=== PATIENT | male | born 1940 | race Caucasian/White ===

== ENCOUNTER 2023-11-06 07:43 | Inpatient (IN) ==
[2023-11-04 14:26] LABS: Basophils # (Auto) 0.04 K/mcL (0.00-0.30); Basophils % (Auto) 0.5 % (0.0-2.0); Eosinophils # (Auto) 0.07 K/mcL (0.00-0.70); Eosinophils % (Auto) 0.8 % (0.0-7.0); Hemoglobin 12.6 g/dL (13.7-17.5); Lymphocytes # (Auto) 1.53 K/mcL (1.50-4.80); Lymphocytes % (Auto) 18.2 % (15.5-49.0); Mean Cell Volume 99.5 fL (80.0-100.0); Mean Corpuscular HGB Conc 32.3 g/dL (31.0-36.0); Mean Platelet Volume 10.3 fL (8.8-12.5); Monocytes # (Auto) 0.63 K/mcL (0.10-0.90); Monocytes % (Auto) 7.5 % (1.0-12.0); Neutrophils % (Auto) 72.8 % (38.0-78.0); Platelet Count 168 K/mcL (140-440); RBC 3.92 M/mcL (4.63-6.08); Red Cell Distribution Width 13.9 % (11.5-14.5); WBC 8.4 K/mcL (4.5-11.0)
[2023-11-04 14:47] LABS: Blood Urea Nitrogen 19 mg/dL (8-23); Calcium 9.1 mg/dL (8.6-10.4); Carbon Dioxide 24 mmol/L (22-30); Chloride 101 mmol/L (96-108); Glomerular Filtration Rate 46; Glucose 94 mg/dL (70-105); Potassium 4.3 mmol/L (3.3-5.1); Sodium 136 mmol/L (133-145)
[2023-11-06] MEDS ORDERED: fentaNYL 100 MCG/2 ML VIAL ONE ×2 (09:21→12:27)
[2023-11-06] MEDS ORDERED: KETAMINE 50 MG/ML Syringe IV ONE (09:21)
[2023-11-06] MEDS ORDERED: PROPOFOL 200 MG/20 ML VIAL IV ONE (09:21)
[2023-11-06] MEDS ORDERED: DEXAMETHASONE 10 MG/ML VIAL ONE (09:22)
[2023-11-06] MEDS ORDERED: ONDANSETRON 4 MG/2 ML VIAL ONE (09:22)
[2023-11-06] MEDS ORDERED: MAGNESIUM SULFATE 2 GM/50 ML BAG IV ONE (09:22)
[2023-11-06] MEDS ORDERED: LIDOCAINE 2% PF 5 ML VIAL ONE (09:22)
[2023-11-06] MEDS ORDERED: ROCURONIUM 10 MG/ML ML IV ONE ×3 (09:22→12:33)
[2023-11-06] MEDS: PIPERACILLIN SODIUM/TAZOBACTAM 3.375 GM in DEXTROSE 5% IN WATER 50 ML IV SCH (09:53)
[2023-11-06] MEDS ORDERED: SUGAMMADEX SODIUM 200 MG/2 ML VIAL IV ONE (14:10)
[2023-11-06] MEDS ORDERED: ROPIVACAINE HCL/PF 30 ML VIAL IJ ONE (14:10)
[2023-11-06] MEDS ORDERED: NALOXONE HCL 0.4 MG/ML VIAL IV PRN (14:25)
[2023-11-06] MEDS ORDERED: ONDANSETRON 4 MG/2 ML VIAL IV PRN (14:25)
[2023-11-06] MEDS ORDERED: diphenhydrAMINE 50 MG/ML VIAL IV PRN (14:25)
[2023-11-06] MEDS ORDERED: LACTATED RINGERS 250 ML IV PRN (14:25)
[2023-11-06] MEDS: GUM MASTIC/STORAX/MSAL/ALCOHOL 1 DOSE DROPERETTE TOPICAL ONE (14:32)
[2023-11-06] MEDS: ACETAMINOPHEN 1,000 MG/100 ML BAG IV ONE (15:09)
[2023-11-06] MEDS: IPRATROPIUM/ALBUTEROL 3 ML AMPUL.NEB NEB PRN (15:18)
[2023-11-06] MEDS: fentaNYL 100 MCG/2 ML VIAL IV PRN (15:18)
[2023-11-06] MEDS ORDERED: HYDROmorphone PCA 30 MG/30 ML PCA.VIAL IV PRN (15:21)
[2023-11-06] MEDS: MEPERIDINE 25 MG/ML VIAL IV PRN (15:22)
[2023-11-06] MEDS: DEXTROSE 5%-LR 1,000 ML IV SCH (15:56)
[2023-11-06] MEDS: METHOCARBAMOL 1,000 MG/10 ML VIAL IV PRN (16:05)
[2023-11-06] MEDS ORDERED: ALBUTEROL SULFATE 60 PUFF INHALER INH PRN (16:09)
[2023-11-06] MEDS: PIPERACILLIN SODIUM/TAZOBACTAM 3.375 GM in DEXTROSE 5% IN WATER 100 ML IV SCH (16:16)
[2023-11-06] MEDS: 0.9 % SODIUM CHLORIDE 250 ML IV SCH (16:21)
[2023-11-06] MEDS: PANTOPRAZOLE 40 MG VIAL IV SCH (16:55)
[2023-11-06] MEDS: HYDROmorphone 1 MG/ML SYRINGE IV PRN (16:55)
[2023-11-06] MEDS: TERBINAFINE CRM 1% TUBE 15GM TOPICAL SCH (20:11)
[2023-11-06] MEDS: SODIUM CHLORIDE NASAL 1 SPRAY BOTTLE NAS SCH (20:13)
[2023-11-07 06:48] LABS: Basophils # (Auto) 0.02 K/mcL (0.00-0.30); Basophils % (Auto) 0.2 % (0.0-2.0); Eosinophils # (Auto) 0 K/mcL (0.00-0.70); Eosinophils % (Auto) 0 % (0.0-7.0); Hematocrit 36.8 % (40.1-51.0); Hemoglobin 11.9 g/dL (13.7-17.5); Lymphocytes # (Auto) 0.64 K/mcL (1.50-4.80); Mean Cell Volume 99.7 fL (80.0-100.0); Mean Corpuscular HGB Conc 32.3 g/dL (31.0-36.0); Monocytes # (Auto) 0.89 K/mcL (0.10-0.90); Monocytes % (Auto) 8.3 % (1.0-12.0); Neutrophils % (Auto) 85.2 % (38.0-78.0); Platelet Count 143 K/mcL (140-440); RBC 3.69 M/mcL (4.63-6.08); Red Cell Distribution Width 13.7 % (11.5-14.5); WBC 10.7 K/mcL (4.5-11.0)
[2023-11-07 07:09] LABS: ALT/SGPT 7 U/L (<40); AST/SGOT 22 U/L (<40); Albumin 3.6 gm/dL (3.2-5.2); Albumin/Globulin Ratio 1.6 (1.0-2.3); Alkaline Phosphatase 74 U/L (39-117); Bilirubin,Total 0.5 mg/dL (0.1-1.0); Blood Urea Nitrogen 18 mg/dL (8-23); Calcium 8.3 mg/dL (8.6-10.4); Carbon Dioxide 25 mmol/L (22-30); Chloride 102 mmol/L (96-108); Globulin 2.2 gm/dL (2.2-3.7); Glomerular Filtration Rate 43; Glucose 172 mg/dL (70-105); Potassium 4.1 mmol/L (3.3-5.1); Sodium 138 mmol/L (133-145)
[2023-11-07] MEDS: ACETAMINOPHEN 650 MG/65 ML BAG IV PRN (07:17)
[2023-11-07] MEDS: IPRATROPIUM/ALBUTEROL 3 ML AMPUL.NEB NEB PRN (10:33)
[2023-11-07] MEDS: ALBUTEROL SULFATE 2.5 MG/3 ML NEBULIZER NEB PRN (12:59)
[2023-11-08 06:59] LABS: Hematocrit 36.5 % (40.1-51.0); Hemoglobin 11.6 g/dL (13.7-17.5); Mean Cell Volume 100.6 fL (80.0-100.0); Mean Corpuscular HGB Conc 31.8 g/dL (31.0-36.0); Platelet Count 140 K/mcL (140-440); RBC 3.63 M/mcL (4.63-6.08); WBC 8.7 K/mcL (4.5-11.0)
[2023-11-08 07:37] LABS: Blood Urea Nitrogen 15 mg/dL (8-23); Calcium 8.3 mg/dL (8.6-10.4); Carbon Dioxide 27 mmol/L (22-30); Chloride 102 mmol/L (96-108); Glomerular Filtration Rate 39; Glucose 103 mg/dL (70-105); Potassium 3.6 mmol/L (3.3-5.1); Sodium 139 mmol/L (133-145)
[2023-11-08] MEDS: ONDANSETRON 4 MG/2 ML VIAL IV PRN (11:39)
[2023-11-08] MEDS: BENZOCAINE/MENTHOL 1 LOZENGE PO PRN (16:04)
[2023-11-09 06:57] LABS: Hematocrit 36.9 % (40.1-51.0); Hemoglobin 11.7 g/dL (13.7-17.5); Mean Cell Volume 100.5 fL (80.0-100.0); Mean Corpuscular HGB Conc 31.7 g/dL (31.0-36.0); Mean Platelet Volume 10.8 fL (8.8-12.5); Platelet Count 126 K/mcL (140-440); RBC 3.67 M/mcL (4.63-6.08); Red Cell Distribution Width 13.8 % (11.5-14.5); WBC 8.2 K/mcL (4.5-11.0)
[2023-11-09 07:22] LABS: Blood Urea Nitrogen 11 mg/dL (8-23); Calcium 8.1 mg/dL (8.6-10.4); Carbon Dioxide 29 mmol/L (22-30); Chloride 103 mmol/L (96-108); Glomerular Filtration Rate 43; Glucose 98 mg/dL (70-105); Potassium 3.9 mmol/L (3.3-5.1); Sodium 138 mmol/L (133-145)
[2023-11-09] MEDS: LACTATED RINGERS 1,000 ML IV SCH (12:39)
[2023-11-10 06:53] LABS: Hematocrit 37.9 % (40.1-51.0); Hemoglobin 12.2 g/dL (13.7-17.5); Mean Cell Volume 98.7 fL (80.0-100.0); Mean Corpuscular HGB Conc 32.2 g/dL (31.0-36.0); Mean Platelet Volume 10.5 fL (8.8-12.5); Platelet Count 134 K/mcL (140-440); RBC 3.84 M/mcL (4.63-6.08); Red Cell Distribution Width 13.6 % (11.5-14.5); WBC 7.7 K/mcL (4.5-11.0)
[2023-11-10 07:22] LABS: Blood Urea Nitrogen 8 mg/dL (8-23); Calcium 8.3 mg/dL (8.6-10.4); Carbon Dioxide 25 mmol/L (22-30); Chloride 102 mmol/L (96-108); Glomerular Filtration Rate 51; Glucose 108 mg/dL (70-105); Potassium 3.3 mmol/L (3.3-5.1); Sodium 137 mmol/L (133-145)
[2023-11-10] MEDS: FUROSEMIDE 40 MG TABLET PO SCH (08:14)
[2023-11-10] MEDS: LEVOTHYROXINE 50 MCG TABLET PO SCH (08:14)
[2023-11-10] MEDS: LEVOTHYROXINE 100 MCG VIAL IV SCH (11:28)
[2023-11-10] MEDS: FUROSEMIDE 20 MG/2 ML VIAL IV SCH (11:30)
[2023-11-10] MEDS ORDERED: MONTELUKAST 10 MG TABLET PO SCH (21:00)
[2023-11-10] MEDS ORDERED: GABAPENTIN 300 MG CAPSULE PO SCH (21:00)
[2023-11-10] MEDS: HEPARIN 5,000 UNIT/ML VIAL SQ SCH (22:55)
[2023-11-11 08:40] LABS: Basophils # (Auto) 0.06 K/mcL (0.00-0.30); Basophils % (Auto) 0.8 % (0.0-2.0); Eosinophils # (Auto) 0.19 K/mcL (0.00-0.70); Eosinophils % (Auto) 2.6 % (0.0-7.0); Hematocrit 39.2 % (40.1-51.0); Hemoglobin 12.7 g/dL (13.7-17.5); Lymphocytes # (Auto) 1.15 K/mcL (1.50-4.80); Mean Cell Volume 96.1 fL (80.0-100.0); Mean Corpuscular HGB Conc 32.4 g/dL (31.0-36.0); Mean Platelet Volume 10.6 fL (8.8-12.5); Monocytes # (Auto) 0.73 K/mcL (0.10-0.90); Monocytes % (Auto) 10.2 % (1.0-12.0); Neutrophils % (Auto) 70.1 % (38.0-78.0); Platelet Count 158 K/mcL (140-440); RBC 4.08 M/mcL (4.63-6.08); Red Cell Distribution Width 13.4 % (11.5-14.5); WBC 7.2 K/mcL (4.5-11.0)
[2023-11-11 08:54] LABS: ALT/SGPT < 5 U/L (<40); AST/SGOT 22 U/L (<40); Albumin 3.6 gm/dL (3.2-5.2); Albumin/Globulin Ratio 1.5 (1.0-2.3); Alkaline Phosphatase 65 U/L (39-117); Bilirubin,Direct 0.3 mg/dL (<0.3); Bilirubin,Total 0.9 mg/dL (0.1-1.0); Blood Urea Nitrogen 8 mg/dL (8-23); Calcium 8.4 mg/dL (8.6-10.4); Carbon Dioxide 25 mmol/L (22-30); Chloride 101 mmol/L (96-108); Globulin 2.4 gm/dL (2.2-3.7); Glomerular Filtration Rate 51; Glucose 111 mg/dL (70-105); Lactate Dehydrogenase 234 U/L (135-225); Phosphorous 1.9 mg/dL (2.5-4.5); Potassium 2.9 mmol/L (3.3-5.1); Sodium 137 mmol/L (133-145); Triglycerides 98 mg/dL (<150); Uric Acid 2.5 mg/dL (2.5-8.0)
[2023-11-11] MEDS: POTASSIUM CHLORIDE 60 MEQ in DEXTROSE 5% IN WATER 1,000 ML IV ONE (11:01)
[2023-11-11] MEDS: SODIUM PHOSPHATE 30 MMOL in DEXTROSE 5% IN WATER 500 ML IV SCH (11:04)
[2023-11-11] MEDS: 0.9 % SODIUM CHLORIDE 10 ML SYRINGE IV SCH (20:41)
[2023-11-11] MEDS: LORazepam 2 MG/ML VIAL IV PRN (23:13)
[2023-11-12 06:31] LABS: Hematocrit 37.4 % (40.1-51.0); Hemoglobin 12.5 g/dL (13.7-17.5); Mean Cell Volume 94.7 fL (80.0-100.0); Mean Corpuscular HGB Conc 33.4 g/dL (31.0-36.0); Mean Platelet Volume 10.3 fL (8.8-12.5); Platelet Count 158 K/mcL (140-440); RBC 3.95 M/mcL (4.63-6.08); Red Cell Distribution Width 13.5 % (11.5-14.5); WBC 8.1 K/mcL (4.5-11.0)
[2023-11-12 06:50] LABS: Blood Urea Nitrogen 9 mg/dL (8-23); Calcium 8.3 mg/dL (8.6-10.4); Carbon Dioxide 25 mmol/L (22-30); Chloride 101 mmol/L (96-108); Glomerular Filtration Rate 43; Glucose 117 mg/dL (70-105); Potassium 3.2 mmol/L (3.3-5.1); Sodium 138 mmol/L (133-145)
[2023-11-12] MEDS: POTASSIUM CHLORIDE 40 MEQ in DEXTROSE 5% IN WATER 500 ML IV SCH (09:13)
[2023-11-12] MEDS: SODIUM PHOSPHATE 15 MMOL in DEXTROSE 5% IN WATER 250 ML IV SCH (12:31)
[2023-11-13 06:33] LABS: Hematocrit 36.6 % (40.1-51.0); Hemoglobin 12.2 g/dL (13.7-17.5); Mean Cell Volume 94.8 fL (80.0-100.0); Mean Corpuscular HGB Conc 33.3 g/dL (31.0-36.0); Mean Platelet Volume 10.8 fL (8.8-12.5); Platelet Count 163 K/mcL (140-440); RBC 3.86 M/mcL (4.63-6.08); Red Cell Distribution Width 13.6 % (11.5-14.5)
[2023-11-13 06:59] LABS: ALT/SGPT 7 U/L (<40); AST/SGOT 21 U/L (<40); Albumin 3.5 gm/dL (3.2-5.2); Albumin/Globulin Ratio 1.6 (1.0-2.3); Alkaline Phosphatase 62 U/L (39-117); Bilirubin,Direct 0.3 mg/dL (<0.3); Bilirubin,Total 0.8 mg/dL (0.1-1.0); Blood Urea Nitrogen 8 mg/dL (8-23); Calcium 8.5 mg/dL (8.6-10.4); Carbon Dioxide 24 mmol/L (22-30); Chloride 105 mmol/L (96-108); Globulin 2.2 gm/dL (2.2-3.7); Glomerular Filtration Rate 46; Glucose 113 mg/dL (70-105); Lactate Dehydrogenase 263 U/L (135-225); Phosphorous 2.6 mg/dL (2.5-4.5); Potassium 3.4 mmol/L (3.3-5.1); Sodium 139 mmol/L (133-145); Triglycerides 101 mg/dL (<150); Uric Acid 2.4 mg/dL (2.5-8.0)
[2023-11-13] MEDS ORDERED: FUROSEMIDE 20 MG/2 ML VIAL IV SCH (11:00)
[2023-11-14 06:22] LABS: Hematocrit 35.7 % (40.1-51.0); Hemoglobin 11.8 g/dL (13.7-17.5); Mean Corpuscular HGB Conc 33.1 g/dL (31.0-36.0); Mean Platelet Volume 10.5 fL (8.8-12.5); Platelet Count 157 K/mcL (140-440); RBC 3.72 M/mcL (4.63-6.08); Red Cell Distribution Width 13.7 % (11.5-14.5); WBC 6.9 K/mcL (4.5-11.0)
[2023-11-14 07:05] LABS: Blood Urea Nitrogen 8 mg/dL (8-23); Calcium 8.5 mg/dL (8.6-10.4); Carbon Dioxide 23 mmol/L (22-30); Chloride 105 mmol/L (96-108); Glomerular Filtration Rate 46; Glucose 108 mg/dL (70-105); Potassium 3.4 mmol/L (3.3-5.1); Sodium 140 mmol/L (133-145)
[2023-11-14] MEDS ORDERED: LIDOCAINE 1% 20 ML VIAL SQ ONE (14:30)
[2023-11-14] MEDS ORDERED: SODIUM CHLORIDE IRRIG SOLUTION 500 ML BOTTLE IRR ONE (14:32)
[2023-11-14] MEDS: 0.9 % SODIUM CHLORIDE 10 ML SYRINGE IV SCH (20:57)
[2023-11-14] MEDS: diphenhydrAMINE 50 MG/ML VIAL IV PRN (20:59)
[2023-11-15 06:20] LABS: Hematocrit 36.1 % (40.1-51.0); Hemoglobin 11.8 g/dL (13.7-17.5); Mean Cell Volume 95.5 fL (80.0-100.0); Mean Corpuscular HGB Conc 32.7 g/dL (31.0-36.0); Mean Platelet Volume 10.6 fL (8.8-12.5); Platelet Count 162 K/mcL (140-440); RBC 3.78 M/mcL (4.63-6.08); Red Cell Distribution Width 13.8 % (11.5-14.5); WBC 6.1 K/mcL (4.5-11.0)
[2023-11-15 06:39] LABS: Blood Urea Nitrogen 8 mg/dL (8-23); Calcium 8.5 mg/dL (8.6-10.4); Carbon Dioxide 24 mmol/L (22-30); Chloride 106 mmol/L (96-108); Glomerular Filtration Rate 39; Glucose 95 mg/dL (70-105); Potassium 3.4 mmol/L (3.3-5.1); Sodium 140 mmol/L (133-145)
[2023-11-16 06:09] LABS: Hematocrit 37.2 % (40.1-51.0); Hemoglobin 12.1 g/dL (13.7-17.5); Mean Cell Volume 96.1 fL (80.0-100.0); Mean Corpuscular HGB Conc 32.5 g/dL (31.0-36.0); Mean Platelet Volume 10.3 fL (8.8-12.5); Platelet Count 165 K/mcL (140-440); RBC 3.87 M/mcL (4.63-6.08); Red Cell Distribution Width 13.8 % (11.5-14.5); WBC 6.9 K/mcL (4.5-11.0)
[2023-11-16 06:41] LABS: Blood Urea Nitrogen 7 mg/dL (8-23); Calcium 8.3 mg/dL (8.6-10.4); Carbon Dioxide 24 mmol/L (22-30); Chloride 105 mmol/L (96-108); Glomerular Filtration Rate 39; Glucose 101 mg/dL (70-105); Potassium 3.5 mmol/L (3.3-5.1); Sodium 138 mmol/L (133-145)
[2023-11-17 05:59] LABS: Basophils # (Auto) 0.08 K/mcL (0.00-0.30); Basophils % (Auto) 1.3 % (0.0-2.0); Eosinophils % (Auto) 3.2 % (0.0-7.0); Hematocrit 36.1 % (40.1-51.0); Hemoglobin 11.7 g/dL (13.7-17.5); Lymphocytes # (Auto) 1.09 K/mcL (1.50-4.80); Lymphocytes % (Auto) 17.4 % (15.5-49.0); Mean Corpuscular HGB Conc 32.4 g/dL (31.0-36.0); Mean Platelet Volume 10.3 fL (8.8-12.5); Monocytes # (Auto) 0.64 K/mcL (0.10-0.90); Monocytes % (Auto) 10.2 % (1.0-12.0); Neutrophils % (Auto) 67.6 % (38.0-78.0); Platelet Count 164 K/mcL (140-440); RBC 3.76 M/mcL (4.63-6.08); Red Cell Distribution Width 13.9 % (11.5-14.5); WBC 6.3 K/mcL (4.5-11.0)
[2023-11-17 06:26] LABS: ALT/SGPT 9 U/L (<40); AST/SGOT 20 U/L (<40); Albumin 3.3 gm/dL (3.2-5.2); Albumin/Globulin Ratio 1.6 (1.0-2.3); Alkaline Phosphatase 64 U/L (39-117); Bilirubin,Direct 0.3 mg/dL (<0.3); Bilirubin,Total 0.7 mg/dL (0.1-1.0); Blood Urea Nitrogen 7 mg/dL (8-23); Calcium 8.3 mg/dL (8.6-10.4); Carbon Dioxide 25 mmol/L (22-30); Chloride 105 mmol/L (96-108); Globulin 2.1 gm/dL (2.2-3.7); Glomerular Filtration Rate 39; Glucose 118 mg/dL (70-105); Lactate Dehydrogenase 218 U/L (135-225); Sodium 140 mmol/L (133-145); Triglycerides 88 mg/dL (<150); Uric Acid 2.2 mg/dL (2.5-8.0)
[2023-11-17] MEDS: 0.9 % SODIUM CHLORIDE 10 ML SYRINGE IV PRN (09:18)
[2023-11-17] MEDS: POTASSIUM CHLORIDE 20 MEQ TABLET PO ONE (09:26)
[2023-11-17] MEDS: ATORVASTATIN 20 MG TABLET PO SCH (09:38)
[2023-11-17] MEDS: APIXABAN 2.5 MG TABLET PO SCH (11:02)
[2023-11-18] MEDS: ALLOPURINOL 100 MG TABLET PO SCH (08:24)
[2023-11-18] MEDS: LEVOTHYROXINE 50 MCG TABLET PO SCH (08:24)
== END 2023-11-18 14:10 | disposition home or self-care (01) | DRG 330 ==
LOC: MEDSUR 07:43 → EDSTATUS 10:00
PROVIDERS: ADMIT Surgery Surgical Critical Care; ATTEND Surgery Surgical Critical Care